=== PATIENT | female | born 1995 | race Caucasian/White ===

== ENCOUNTER → 2018-06-29 | Outpatient (CLI) | payer OTHER, MEDICAID | LOC: M SMT 13:03 | PROVIDERS: ATTEND Advanced Practice Midwife | DX: Z32.01 Encounter for pregnancy test, result positive (principal) ==

== ENCOUNTER → 2018-08-22 | Outpatient (REF) | payer OTHER | LOC: M LAB REF 11:31 | PROVIDERS: ATTEND Advanced Practice Midwife | DX: Z12.4 Encounter for screening for malignant neoplasm of cervix (principal) ==

== ENCOUNTER 2018-08-27 17:59 | Emergency (ER) | payer OTHER ==
[~2018-08-27] VITALS: Ht 157.5 cm; Wt 92.5 kg
[2018-08-27] MEDS ORDERED: GLUC500T (18:04)
[2018-08-27 18:56] LABS: BASO % 0.2 % (0.0-1.0); EOS # 0.3 10^3/uL (0.0-0.50); EOS % 3.5 % (0.0-3.0); HEMATOCRIT 40.4 % (36.0-47.0); HEMOGLOBIN 13.3 g/dl (12.0-15.5); LYMPH # 3.3 10^3/uL (1.5-6.5); LYMPH % 35.9 % (24.0-44.0); MEAN CORPUSCULAR HEMOGLOBIN 28.7 pg (27.0-33.0); MEAN CORPUSCULAR HGB CONC 32.9 g/dl (32.0-36.5); MEAN CORPUSCULAR VOLUME 87.3 fl (80.0-96.0); MONO # 0.7 10^3/uL (0.0-0.8); MONO % 7.4 % (0.0-5.0); NEUTROPHILS # 4.9 10^3/uL (1.8-7.7); NEUTROPHILS % 52.7 % (36.0-66.0); PLATELET COUNT, AUTOMATED 164 10^3/uL (150-450); RED BLOOD COUNT 4.63 10^6/uL (4.00-5.40); WHITE BLOOD COUNT 9.2 10^3/uL (4.0-10.0)
--- NOTE | 2018-08-27 19:58 | REPVR ---
EXAM: US , Transvaginal EXAM DATE/TIME: 08/27/2018 6:52 PM CLINICAL HISTORY: 22 years old, female; Signs and symptoms; Lmp or gestational age (in weeks): 4.5wks; Other: Vaginal bleeding; ; Additional info: Vaginal bleeding/rlq pain TECHNIQUE: Imaging protocol: Real-time transvaginal obstetrical ultrasound of the maternal pelvis and a first trimester with image documentation. Transvaginal imaging was used for better evaluation of the fetus and adnexa. COMPARISON: No relevant prior studies available. FINDINGS: GESTATION: Gestation: 6 no evidence of a gestational sac, pole or dose. Heart rate: No cardiac activity detected. MATERNAL: Uterus: Uterus measures 7.7 x 4.1 x 5.6 cm. There is an arcuate or septate configuration of the endometrial cavity measuring 1.6 cm in maximum thickness. Right adnexa: Right ovary measures 4.7 x 1.5 cm. Left adnexa: Left ovary measures 3.7 x 1.9 cm. Intraperitoneal: Trace free fluid in the cul-de-sac. IMPRESSION: Empty uterus in a patient who will be 4.5 weeks based on LMP. Findings may indicate very early IUP prior to visualization of a gestational sac or fetus. Correlation with serial beta-hCG levels and follow ultrasound recommended in order to exclude ectopic verses very early or early failure. Also noted is a subseptate or arcuate uterus. Electronically signed by: Juvencio Wong On 08/27/2018 19:57:58 PM
[2018-08-27 20:19] VITALS: BP 126/68
== END 2018-08-27 20:25 | disposition home or self-care (01) ==
LOC: M ED 17:59
DX: O20.9 Hemorrhage in early pregnancy, unspecified (principal); E28.2 Polycystic ovarian syndrome; Z79.899 Other long term (current) drug therapy; Z87.891 Personal history of nicotine dependence

== ENCOUNTER 2018-09-06 17:50 | Emergency (ER) | payer OTHER ==
[~2018-09-06] VITALS: Ht 157.5 cm; Wt 90.9 kg
[~2018-09-06 17:50] MED LIST: GLUC500T
[2018-09-06 19:19] LABS: BASO % 0.3 % (0.0-1.0); EOS # 0.2 10^3/uL (0.0-0.50); EOS % 2.7 % (0.0-3.0); HEMATOCRIT 36.7 % (36.0-47.0); HEMOGLOBIN 12.6 g/dl (12.0-15.5); LYMPH # 3.5 10^3/uL (1.5-6.5); LYMPH % 39.6 % (24.0-44.0); MEAN CORPUSCULAR HEMOGLOBIN 29.6 pg (27.0-33.0); MEAN CORPUSCULAR HGB CONC 34.3 g/dl (32.0-36.5); MEAN CORPUSCULAR VOLUME 86.2 fl (80.0-96.0); MONO # 0.7 10^3/uL (0.0-0.8); NEUTROPHILS # 4.4 10^3/uL (1.8-7.7); NEUTROPHILS % 49.1 % (36.0-66.0); PLATELET COUNT, AUTOMATED 169 10^3/uL (150-450); RED BLOOD COUNT 4.26 10^6/uL (4.00-5.40); WHITE BLOOD COUNT 8.9 10^3/uL (4.0-10.0)
--- NOTE | 2018-09-06 21:56 | REPVR ---
EXAM: US First Trimester, Transabdominal EXAM DATE/TIME: 09/06/2018 9:06 PM CLINICAL HISTORY: 23 years old, female; complicated by abdominal or pelvic pain; Right lower quadrant; First trimester; Gestational age or lmp: Lmp 07/23/18; ; Additional info: Cramping TECHNIQUE: Imaging protocol: Real-time transabdominal obstetrical ultrasound of the maternal pelvis and a first trimester , less than 14 weeks 0 days, with image documentation. COMPARISON: 1ST TRIMESTER US 08/27/2018 6:49 PM FINDINGS: GESTATION: Gestation: Small fluid collection at the posterior margin of the endometrium suggesting a small gestational sac with a small yolk sac. No pole at this time. Mean sac size is 5 mm suggesting an age of 5 weeks 2 days. Placenta: No subchorionic bleed. BIOMETRY: Estimated gestational age: See Gestation Finding. MATERNAL: Uterus: The uterus measures 8.5 cm in its cephalocaudad dimension and 4.6 x 5.3 cm in its AP and lateral dimensions transabdominal. The uterus measures 7.9 cm in its cephalocaudad dimension and 4.2 x 5.2 cm in its AP and lateral dimensions transvaginal. Cervix: Unremarkable. Right adnexa: The right ovary measures 3.8 x 2.2 x 2.7 cm and demonstrates blood flow. Left adnexa: The left ovary measures 2.2 x 2.3 x 1.2 cm and demonstrates blood flow. Intraperitoneal: No intraperitoneal free fluid. IMPRESSION: 1. Findings consistent with small gestational sac which by size suggests an age of 5 weeks 2 days. There is a small yolk sac but no pole at this time. Followup in 1-2 weeks may be of benefit for further evaluation. 2. Otherwise negative pelvic sonogram. Electronically signed by: Usama Pacheco On 09/06/2018 21:56:16 PM
[2018-09-06 22:21] VITALS: BP 118/65
== END 2018-09-06 22:22 | disposition home or self-care (01) ==
LOC: M ED 17:50
DX: O26.891 Other specified pregnancy related conditions, first trimester (principal); R10.9 Unspecified abdominal pain; Z3A.01 Less than 8 weeks gestation of pregnancy; O99.281 Endocrine, nutritional and metabolic diseases complicating pregnancy, first trimester; E28.2 Polycystic ovarian syndrome; Z79.899 Other long term (current) drug therapy; Z87.891 Personal history of nicotine dependence

== ENCOUNTER → 2018-09-12 | Outpatient (CLI) | payer OTHER ==
--- NOTE | 2018-09-12 16:57 | REP ---
Clinical: Pelvic pain and cramping for dating and viability. Technique: Transabdominal first trimester obstetrical ultrasound with color Doppler evaluation. Findings: Ultrasound examination demonstrates single live intrauterine . Gestational sac with yolk sac and pole noted. CRL of 3 mm corresponds to 5 weeks 6 days gestational age with estimated date of delivery 05/09/2019. heart rate equals 113 beats per minute. Maternal ovaries appear normal. No pelvic free fluid. Impression: Single live early intrauterine at 5-week 6 days gestational age. Complete anatomical assessment should be performed at 19-20 weeks. Electronically Signed by Ken Carroll MD 09/12/2018 04:49 P
== END ==
LOC: M RAD 16:03
PROVIDERS: ATTEND Obstetrics & Gynecology
DX: Z34.81 Encounter for supervision of other normal pregnancy, first trimester (principal); Z3A.01 Less than 8 weeks gestation of pregnancy

== ENCOUNTER 2019-05-06 20:28 | Outpatient (CLI) | payer OTHER ==
[~2019-05-06] VITALS: Ht 157.5 cm; Wt 106.3 kg
[2019-05-06 20:48] VITALS: BP 127/82
[2019-05-06 21:09] VITALS: BP 125/85
[2019-05-06] MEDS ORDERED: ACETAMINOPHEN 500 MG TAB PO ONE (21:15)
[2019-05-06 22:13] VITALS: BP 135/83
[2019-05-06] MEDS ORDERED: MACR100C43 PO (22:26)
[2019-05-06] MEDS ORDERED: NITROFURANTOIN (MACROBID) 100 MG CAP PO ONE (22:30)
[2019-05-06] MEDS ORDERED: NITROFURANTOIN (MACROBID) 100 MG CAP As Ordered ONE (22:35)
== END 2019-05-06 22:33 | disposition home or self-care (01) ==
LOC: M LDO 20:28
PROVIDERS: ATTEND Obstetrics & Gynecology
DX: O99.89 Other specified diseases and conditions complicating pregnancy, childbirth and the puerperium (principal); M54.5 Low back pain; Z3A.39 39 weeks gestation of pregnancy
CPT/HCPCS: 59025; 81001; 87086; G0378; G0463